=== PATIENT | female | born 1935 | race Caucasian/White ===

== ENCOUNTER 2016-10-11 09:42 | Emergency (ER) | payer MEDICARE, OTHER | END 2016-10-11 11:12 | disposition home or self-care (01) | LOC: ER 09:42 | DX: L03.116 Cellulitis of left lower limb (principal); J44.9 Chronic obstructive pulmonary disease, unspecified; E03.9 Hypothyroidism, unspecified; K21.9 Gastro-esophageal reflux disease without esophagitis; E78.5 Hyperlipidemia, unspecified; I10 Essential (primary) hypertension; Z79.899 Other long term (current) drug therapy; Z79.01 Long term (current) use of anticoagulants; Z88.1 Allergy status to other antibiotic agents; Z88.5 Allergy status to narcotic agent | CPT/HCPCS: 99282; 99283 ==

== ENCOUNTER 2016-10-16 14:25 | Emergency (ER) | payer MEDICARE, OTHER | END 2016-10-16 16:20 | disposition home or self-care (01) | LOC: ER 14:25 | DX: L03.116 Cellulitis of left lower limb (principal); I50.9 Heart failure, unspecified; I48.91 Unspecified atrial fibrillation; E07.9 Disorder of thyroid, unspecified; Z88.1 Allergy status to other antibiotic agents | CPT/HCPCS: 99282; 99283 ==